=== PATIENT | male | born 1990 | race African-American/Black ===

== ENCOUNTER 2024-03-16 00:09 | Emergency (ER) | payer SELFPAY ==
[~2024-03-16] VITALS: Ht 175.3 cm; Wt 75.4 kg
[2024-03-16 00:30] VITALS: BP 138/82; TEMP 98.2; O2SAT 100
== END 2024-03-16 01:30 | disposition home or self-care (01) ==
LOC: M ED 00:09
DX: T68.XXXA Hypothermia, initial encounter (principal); X31.XXXA Exposure to excessive natural cold, initial encounter; Y99.9 Unspecified external cause status